=== PATIENT | male | born 1960 | race Caucasian/White ===

== ENCOUNTER 2019-07-12 14:13 | Observation (INO) | payer OTHER ==
[~2019-07-12] VITALS: Ht 170.2 cm; Wt 70.5 kg
[2019-07-12 15:34] LABS: Source, Urine Clean Catch
[2019-07-12 15:40] LABS: BASOPHILS ABSOLUTE AUTO 0.04 K/mm3 (0.00-0.23); BASOPHILS PERCENT AUTO 1 % (0-2); EOSINOPHILS ABSOLUTE AUTO 0.17 K/mm3 (0.00-0.68); EOSINOPHILS PERCENT AUTO 2 % (0-6); Hematocrit 39.7 % (37.0-53.0); Hemoglobin 13.3 g/dL (13.5-17.5); IMMATURE GRAN ABSOLUTE AUTO 0.04 K/mm3 (0.00-0.10); IMMATURE GRAN PERCENT AUTO 1 % (0-1); LYMPHOCYTES ABSOLUTE AUTO 0.71 K/mm3 (0.84-5.20); LYMPHOCYTES PERCENT AUTO 8 % (21-46); MONOCYTES ABSOLUTE AUTO 0.58 K/mm3 (0.16-1.47); MONOCYTES PERCENT AUTO 7 % (4-13); Mean Corpuscular HGB 30.9 pg (26.0-34.0); Mean Corpuscular HGB Conc 33.5 g/dL (31.5-36.5); Mean Corpuscular Volume 92 fL (80-100); Mean Platelet Volume 10.1 fL (9.1-12.4); NEUTROPHILS ABSOLUTE AUTO 7.06 K/mm3 (1.96-9.15); NEUTROPHILS PERCENT AUTO 82 % (41-73); Platelet Count 323 K/mm3 (150-400); RDW Coefficient Variation 13.2 % (11.7-14.2); RDW Standard Deviation 45.4 fL (35.1-46.3); Red Blood Cell Count 4.31 M/mm3 (4.30-5.90)
[2019-07-12 15:45] LABS: Bilirubin, Urine Neg (Neg); Blood, Urine Neg (Neg); Glucose Qualitative, Urine Neg (Neg); Ketones, Urine Neg (Neg); Leukocyte Esterase, Urine Neg (Neg); Nitrite, Urine Neg (Neg); Protein, Urine Neg (Neg); Specific Gravity, Urine 1.015 (1.003-1.022); Urobilinogen, Urine NORM (Normal)
[2019-07-12 16:10] LABS: Appearance, Urine Clear (Clear); Color, Urine Yellow (P-Yellow)
[2019-07-12 16:21] LABS: Alanine Aminotransfer (ALT/SGP 20 U/L (12-78); Albumin, Blood 3.5 g/dL (3.4-5.0); Alk Phos 102 U/L (50-136); Anion Gap 6 mmol/L (6-16); Aspartate Aminotrans (AST/SGOT 16 U/L (12-37); Bilirubin, Total 0.6 mg/dL (0.1-1.0); Blood Urea Nitrogen 21 mg/dL (8-24); Bun/Creatinine Ratio 26.6 (12.0-20.0); CO2, Blood 27 mmol/L (21-32); Calcium, Blood 8.9 mg/dL (8.5-10.1); Chloride, Blood 105 mmol/L (98-108); Creatinine, Blood 0.79 mg/dL (0.60-1.20); Globulin, Blood 3.5 g/dL (2.2-4.0); Glomerular Filtration Rate >60 (60-); Glucose, Blood 126 mg/dL (70-99); Potassium, Blood 4.2 mmol/L (3.5-5.5); Sodium, Blood 138 mmol/L (136-145)
[2019-07-12 16:23] LABS: Troponin I <0.015 ng/mL (0.000-0.040)
[2019-07-13 04:33] LABS: BASOPHILS ABSOLUTE AUTO 0.04 K/mm3 (0.00-0.23); BASOPHILS PERCENT AUTO 0 % (0-2); EOSINOPHILS PERCENT AUTO 1 % (0-6); Hematocrit 42.6 % (37.0-53.0); Hemoglobin 14.1 g/dL (13.5-17.5); IMMATURE GRAN ABSOLUTE AUTO 0.03 K/mm3 (0.00-0.10); IMMATURE GRAN PERCENT AUTO 0 % (0-1); LYMPHOCYTES ABSOLUTE AUTO 0.82 K/mm3 (0.84-5.20); LYMPHOCYTES PERCENT AUTO 9 % (21-46); MONOCYTES PERCENT AUTO 7 % (4-13); Mean Corpuscular HGB 30.1 pg (26.0-34.0); Mean Corpuscular HGB Conc 33.1 g/dL (31.5-36.5); Mean Corpuscular Volume 91 fL (80-100); Mean Platelet Volume 9.8 fL (9.1-12.4); NEUTROPHILS ABSOLUTE AUTO 7.75 K/mm3 (1.96-9.15); NEUTROPHILS PERCENT AUTO 82 % (41-73); Platelet Count 353 K/mm3 (150-400); RDW Coefficient Variation 13.4 % (11.7-14.2); RDW Standard Deviation 44.9 fL (35.1-46.3); Red Blood Cell Count 4.69 M/mm3 (4.30-5.90); White Blood Cell Count 9.44 K/mm3 (4.00-11.30)
[2019-07-13 04:55] LABS: Anion Gap 7 mmol/L (6-16); Blood Urea Nitrogen 12 mg/dL (8-24); Bun/Creatinine Ratio 14.7 (12.0-20.0); CO2, Blood 26 mmol/L (21-32); Calcium, Blood 8.6 mg/dL (8.5-10.1); Chloride, Blood 102 mmol/L (98-108); Creatinine, Blood 0.82 mg/dL (0.60-1.20); Glomerular Filtration Rate >60 (60-); Glucose, Blood 110 mg/dL (70-99); Sodium, Blood 135 mmol/L (136-145)
--- NOTE | 2019-07-13 05:45 | NUR ---
SHIFT SUMMARY PT TO SURG FLOOR FROM ED LAST NIGHT. HAS SINCE REPORTED MINIMAL/TOLERABLE DISCOMFORT, NO N/V. PT A/O BUT IS WEAK AND HAS HAD BED ALARM ON. NEEDS STANDBY ASSIST TO BATHROOM. PT VOIDING. HAS BEEN NPO PER ORDERS. PT HAS BEEN RESTING QUIETLY.
--- NOTE | 2019-07-13 11:43 | NUR ---
1140 to day surgery per cart. patient provided me with written consent to contact his son Juan Manuel Menjivar to inform him that he was having surgery. no answer at phone number that patient provided
--- NOTE | 2019-07-13 11:45 | NUR ---
History, Chart, Medications and Allergies reviewed before start of procedure. Patient confirms NPO status and agrees with scheduled surgery. Pre-Op teaching done. Pt verbalizes understanding.
--- NOTE | 2019-07-13 12:36 | NUR ---
PT GIVEN BREATHING TREATMENT AND VERSED PRIOR TO GOING TO OR.
--- NOTE | 2019-07-13 14:27 | NUR ---
post oreturn to room. pt awake and cooperative. gauze in place to llq and is clean and dry. pt reports pain is in acceptable level at 3/10 at this time
--- NOTE | 2019-07-13 15:29 | NUR ---
PATIENT TOLERATING REGULAR DIET WITHOUT NAUSEA. ABD DRESSING CLEAN DR AND INTACT. REPORT GIVEN TO AMANDA BENNETT RN
--- NOTE | 2019-07-13 16:17 | NUR ---
ASSUMING CARE ASSUMED CARE AT APPROX 1545. PT RESTING COMFORTABLY IN BED AND FINISHED EATING MEAL TRAY. GABBY REG DIET. PT DENIES PAIN, SOB, AND N/V. PT DENIES ANY NEEDS AT THIS TIME. CALL LIGHT WITHIN REACH.
[2019-07-14 03:45] LABS: BASOPHILS ABSOLUTE AUTO 0.05 K/mm3 (0.00-0.23); BASOPHILS PERCENT AUTO 1 % (0-2); EOSINOPHILS ABSOLUTE AUTO 0.13 K/mm3 (0.00-0.68); EOSINOPHILS PERCENT AUTO 1 % (0-6); Hematocrit 41.4 % (37.0-53.0); Hemoglobin 13.8 g/dL (13.5-17.5); IMMATURE GRAN ABSOLUTE AUTO 0.02 K/mm3 (0.00-0.10); IMMATURE GRAN PERCENT AUTO 0 % (0-1); LYMPHOCYTES ABSOLUTE AUTO 1.58 K/mm3 (0.84-5.20); LYMPHOCYTES PERCENT AUTO 14 % (21-46); MONOCYTES PERCENT AUTO 9 % (4-13); Mean Corpuscular HGB 30.3 pg (26.0-34.0); Mean Corpuscular HGB Conc 33.3 g/dL (31.5-36.5); Mean Corpuscular Volume 91 fL (80-100); Mean Platelet Volume 9.8 fL (9.1-12.4); NEUTROPHILS ABSOLUTE AUTO 8.16 K/mm3 (1.96-9.15); NEUTROPHILS PERCENT AUTO 75 % (41-73); Platelet Count 335 K/mm3 (150-400); RDW Coefficient Variation 13.6 % (11.7-14.2); RDW Standard Deviation 45.7 fL (35.1-46.3); Red Blood Cell Count 4.55 M/mm3 (4.30-5.90); White Blood Cell Count 10.94 K/mm3 (4.00-11.30)
[2019-07-14 04:05] LABS: Anion Gap 5 mmol/L (6-16); Blood Urea Nitrogen 22 mg/dL (8-24); Bun/Creatinine Ratio 21.8 (12.0-20.0); CO2, Blood 27 mmol/L (21-32); Calcium, Blood 8.4 mg/dL (8.5-10.1); Chloride, Blood 106 mmol/L (98-108); Creatinine, Blood 1.01 mg/dL (0.60-1.20); Glomerular Filtration Rate >60 (60-); Glucose, Blood 93 mg/dL (70-99); Potassium, Blood 4.1 mmol/L (3.5-5.5); Sodium, Blood 138 mmol/L (136-145)
--- NOTE | 2019-07-14 07:40 | NUR ---
SUMMARY ASSUMED CARE @ 2400. PT PLEASANT. DSNG D/I VOIDING WITHOUT DIFF.I MED X1 FOR PAIN.
[2019-07-14] MEDS ORDERED: ONDA4ODT PO (14:40)
[2019-07-14] MEDS ORDERED: OXYC5 PO (14:41)
== END 2019-07-14 15:55 | disposition home or self-care (01) ==
LOC: ER 14:13 → SURS 14:14 → ER 18:16 → SURS 18:16
PROVIDERS: Emergency Medicine; Nurse Practitioner Acute Care; ADMIT Internal Medicine
DX: K40.30 Unilateral inguinal hernia, with obstruction, without gangrene, not specified as recurrent (principal); F17.210 Nicotine dependence, cigarettes, uncomplicated; I10 Essential (primary) hypertension
CPT/HCPCS: 36415; 74177; 80048; 80053; 81003; 83605; 83690; 83735; 84484; 85025; 93005; 93010; 96361; 96374-59; 96375; 96376; 99285-25; C1781; G0378; J0690; J1100; J1170; J2250; J2405; J2704; J3010; J7030; J7120; Q9967

== ENCOUNTER 2022-04-29 18:16 | Observation (INO) | payer OTHER ==
[~2022-04-29] VITALS: Ht 172.7 cm; Wt 70.3 kg
[~2022-04-29 18:16] MED LIST: ONDA4ODT PO; OXYC5 PO
--- NOTE | 2022-04-30 | NUR ---
PT NEW ADMIT FROM THE ER WITH A LEFT PNEUMOTHORAX. PT ARRIVED A/OX4, DENYING ANY SOB AND CP, REPORTED PAIN WITH INSPIRATION. HE SATS WEL ON RA, STAYING ABOVE 95%. LUNGS SOUNDED DIM AND WHEEZY UPON ARRIVAL, DIMINISHED ON THE LEFT SIDE. NO TRACHEAL SHIFT NOTED. NO CREPITUS NOTED. CO FOUNDER AND CHAIRMAN NOTIFIED RT FOR AN ASSESSMENT OF THIS PATIENT. NO SIGNIFIGANT FINDINGS. ABRASIONS NOTED ON THE LEFT SIDE OF THE PATIENTS BODY. CIRCULATION AND SENSATION IN TACT IN LLE, NO SWELLING NOTED AT THIS TIME. PATIENT ORIENTED TO ROOM AND CALL LIGHT, MEDICATED PER EMAR, AWAITING FURTHER ORDERS.
--- NOTE | 2022-04-30 00:44 | NUR ---
LUNGS DIM ON LEFT SIDE W/SCATTERED INSP WHEEZING. PT DENIES SOB, REP PAIN W/INSPIRATION, SATS >90% ON RA. NO CREPITUS NOTED. RT CALLED IN FOR ASSESSMENT.
--- NOTE | 2022-04-30 04:01 | NUR ---
NEW ADMIT THIS SHIFT FROM THE ER. VSS, PT KEEPING SATS >95% ON RA. THE PT HAS SLEPT WELL SINCE ARRIVING TO THE FLOOR. PT HAS REMAINED IN BED T/O THE SHIFT THERE IS INCREASED PAIN WITH MOVEMENT. MEDICATED FOR PAIN ONCE UPON ARRIVAL TO THE FLOOR, WHEN ASKED THE PT HAS DENEIED THE NEED FOR ANY MORE MEDICATION AT THIS TIME. VOIDING W/O DIFFICULTY, INDEPENDENTLY INTO THE URINAL. TOLLERATING PO INTAKE. LUNG SOUNDS HAVE REMAINED DIMINISHED ON THE LEFT SIDE OF THE CHEST, PT DENIES ANY SOB OR CHEST PAIN. PAIN NOTED ON DEEP INSPIRATION. NO CREPITUS NOTED. PT IS CURRENTLY SLEEPING, IN NO DISTRESS, CALL LIGHT IN REACH.
--- NOTE | 2022-04-30 17:37 | NUR ---
RT NOTIFIED OF NEW CONSULT ORDER
--- NOTE | 2022-04-30 17:38 | NUR ---
SUMMARY: NO ACUTE CHANGE TODAY. A/O, VSS. PT APPEARS LESS PAINFUL AND MORE ABLE TO MOVE TONIGHT. PT WAS HAVING MUSCLE SPASMS AROUND RIBS THIS MORNING, AND BARELY ABLE TO MOVE UPPER BODY, MEDICATED PER EMAR. PT ABLE TO WALK TO BATHROOM WITH 1 ASSIST TONIGHT AND SHOWERED. PT IS SOB ON EXERTION AND UPON ASCULTATION HAS WHEZZING THROUGHOUT LUNGS. SP02 REMAINED ABOVE 90% ON RA WHEN PT MOVED. PT HAS DENIED CP. WILL CTM AND REPORT TO NOC RN
--- NOTE | 2022-05-01 06:41 | NUR ---
SHIFT SUMMARY PT RESTED A GOOD PORITON OF THE SHIFT AFTER RECEIVING HIS HS MEDICATIONS. PT RECEIVED ONE NORCO FOR PAIN AND A MUSCLE RELAXER CLOSE TO 2100. THIS SEEMED TO WORK WELL FOR PT AND HE SLEPT SEVERAL HOURS. AROUND 0300, PT AWOKE COMPLAINING OF PAIN. MEDICATED WITH ONE NORCO AGAIN, WITHIN AN HOUR OF RECEIVING PT REPORTED TO THE RESEARCH ENGINEER THAT IT HAD NOT BEEN WORKING, AND THAT NOTHING THAT HE HAS BEEN RECEIVING OVER THE LAST TWO DAYS HAS REALLY HELPED WITH PAIN. HE HAD NOT RELAYED THIS INFORMATION TO ANY STAFF MEMBER PRIOR TO THIS TIME. PT STATES THAT HE DID NOT WANT TO BE A BOTHER AND REPORTS THAT HE HAD BEEN TRYING TO HOLD OFF FROM TAKING ANY PAIN MEDICATIONS. IV DILAUDID DC'D YESTERDAY DURING THE DAY. PT REPORTS THAT PAIN IS OK AT REST, BUT THAT HE HAS SPASMS WITH ANY MOVEMENT. PT GIVEN THE SECOND NORCO AROUND 0400 AFTER HE REPORTED THAT THE ONE NORCO WAS NOT EFFECTIVE. AFTER PT RECEIVED THE 2ND NORCO, PT SLEPT AND APPEARED COMFORTABLE. ROUNDED ON PT SEVERAL TIMES TO MONITOR THE EFFECT OF PAIN MEDICATION. RESPIRATORY STATUS UNCHANGED OVERNIGHT, RESP E/U ON RA, SATS WNL. VITALS ARE STABLE. PT DENIES N/T IN EXT. BED IN LOWEST POSITION, CALL LIGHT WITHIN REACH.
--- NOTE | 2022-05-01 10:00 | NUR ---
THERAPY: PT WORKED WELL WITH THERAPY TO AMBULATE HALLWAY. PLAN FOR DC HOME TODAY. PT FAMILY CONTACTED ABOUT POSSIBLE ASSISTANCE WITH DISCHARGE. DAUGHTER RESPONSIVE BUT UNABLE TO HELP AT THIS TIME.
[2022-05-01] MEDS ORDERED: Norco 5-325 Ta1 EACH PO (11:04)
[2022-05-01] MEDS ORDERED: Robaxin750 MG PO (11:06)
--- NOTE | 2022-05-01 16:59 | NUR ---
PAIN: PT CONTINUES TO HAVE A LOT OF PAIN WITH SPASMS. AFTERNOON MUSCLE RELAXER HELD PT WAS GOING TO DC TO HIS TRUCK AND WOULD BE UNABLE TO DRIVE AFTER TAKING MED. PT ALSO HAS NOT HAD A BM SINCE BEFORE ADMISSION. PT ON STOOL SOFTENERS. STARTED ON PRUNE JUICE. PT WILL STAY ONE MORE NIGHT AFTER SPEAKING WITH DOCTOR. MUSCLE RELAXER GIVEN AT THIS TIME.
--- NOTE | 2022-05-01 19:35 | NUR ---
PT HAS BEEN STABLE THIS SHIFT. PT HAS HAD INTERMITTENT SPASMS BUT TRYING TO AVOID PAIN MEDICATION HE HAS TO DRIVE FREQUENTLY TO GET AROUND AND WAS POSSIBLY DISCHARGING TODAY. PT LIVES IN TRUCK. PT ABLE TO GET OOB WITH 1 ASSIST AND TAKE SHORT WALKS. TOLERATES SHORT AMOUNTS OF TIME IN CHAIR. SOB WITH EXERTION. PT HAS POOR APPETITE. NO BM FOR SEVERAL DAYS. PT TAKING STOOL SOFTENERS AND PRUNE JUICE. VOIDING WELL. DISCHARGE COMPLETED, PROBABLE DC TOMORROW IF PAIN IMPROVED AND PT ABLE TO HAVE BM. USES CALL LIGHT APPROPRIATELY.
--- NOTE | 2022-05-02 05:31 | NUR ---
SHIFT SUMMARY NO ACUTE CHANGES, PT HAS DONE WELL OVERNIGHT. HE REPORTS THAT HE IS FEELING ALOT BETTER. PT STILL HAVING SOME PAIN AND MUSCLE SPASMS WITH MOVEMENT BUT OVERALL IMPROVED. HE HAS DECLINED ANYTHING FOR PAIN. RESPIRATORY STATUS WNL. PT IS HOPING FOR DC TODAY. BED IN LOWEST POSITION, CALL LIGHT WITHIN REACH.
--- NOTE | 2022-05-02 10:18 | NUR ---
DENIES ANY SOB OR ANY NEED FOR PAIN MEDS TODAY, PT WAS READY FOR DC YESTERDAY, PT STATES HE WANTS TO WATCH FOOTBALL FOR A LITTLE BIT, PT WAS TOLD DC INSTUCTIONS WILL BE GIVEN AFTER LUNCH TIME, VERBALIZED UNDERSTANDING.
--- NOTE | 2022-05-02 12:41 | NUR ---
TOLERATED LUNCH WELL, DC INSTRUCTIONS GIVEN, VERBALIZED UNDERSTANDING, IV DC'D, CATH INTACT.
== END 2022-05-02 13:04 | disposition home or self-care (01) ==
LOC: ER 18:16 → SURS 18:18 → ER 23:06 → SURS 23:06
PROVIDERS: ADMIT Surgery
DX: S22.42XA Multiple fractures of ribs, left side, initial encounter for closed fracture (principal); S27.0XXA Traumatic pneumothorax, initial encounter; S80.812A Abrasion, left lower leg, initial encounter; V49.9XXA Car occupant (driver) (passenger) injured in unspecified traffic accident, initial encounter; R91.8 Other nonspecific abnormal finding of lung field
CPT/HCPCS: 71045; 71250; 72170; 73560-LT; 73590; 73600; 90471; 90714; 93005; 93010; 94760; 96374; 97162; 97530; 99285-25; A9270; J1170; J1650; J3010